=== PATIENT | male | born 1960 | race African-American/Black ===

== ENCOUNTER 2021-04-21 19:05 | Emergency (ER) | payer OTHER ==
[~2021-04-21 19:05] MED LIST: GLUCOPHAGE500 MG PO; ONDANSETRON HCL4 MG PO
[2021-04-21] MEDS ORDERED: IBUPROFEN800 MG PO ×2 (20:56→21:05)
[2021-04-21] MEDS ORDERED: CYCLOBENZAPRINE10 MG PO ×2 (20:56→21:05)
== END 2021-04-21 21:15 | disposition home or self-care (01) ==
LOC: FER 19:05
DX: S16.1XXA Strain of muscle, fascia and tendon at neck level, initial encounter (principal); S39.012A Strain of muscle, fascia and tendon of lower back, initial encounter; E11.9 Type 2 diabetes mellitus without complications; Z79.84 Long term (current) use of oral hypoglycemic drugs; V49.50XA Passenger injured in collision with unspecified motor vehicles in traffic accident, initial encounter; Y92.410 Unspecified street and highway as the place of occurrence of the external cause
CPT/HCPCS: 71046; 72050; 72110